=== PATIENT | male | born 1975 | race Caucasian/White ===

== ENCOUNTER 2024-03-03 06:08 | Emergency (ER) | payer OTHER, SELFPAY ==
[2024-03-03 06:11] VITALS: BP 190/104
[2024-03-03 06:20] VITALS: BMI 24.9
[2024-03-03 06:25] VITALS: BP 177/110; BP 187/110; BP 197/122; PULSE 71; PULSE 80; PULSE 83
[2024-03-03 06:43] LABS: % Basophils 0.6 % (0-2); % Eosinophils 1.7 % (0-6); % Immature Granulocytes 0.5 % (0-0.5); % Neutrophils 65.2 % (42.2-75.2); Absolute Eosinophils 0.1 10^3/uL (0-0.7); Absolute Lymphocytes 1.5 10^3/uL (1.2-3.4); Absolute Monocytes 0.6 10^3/uL (0.1-0.6); Absolute Neutrophils 4.3 10^3/uL (1.4-6.5); Hematocrit 44.9 % (39.0-52.0); Hemoglobin 14.3 g/dL (13.0-18.0); Mean Corp Hgb Conc. 31.8 g/dL (33.0-37.0); Mean Corpuscular Hgb 31.4 pg (27.0-31.0); Mean Corpuscular Volume 98.5 fL (80.0-94.0); Mean Platelet Volume 9.4 fL (7.4-10.4); Nucleated Red Blood Cells % 0 % (-); Platelet Count 221 10^3/uL (130-400); Red Blood Cell Count 4.56 10^6/uL (4.70-6.10); Red Cell Dist. Width 13.7 % (11.5-14.5); White Blood Cell Count 6.7 10^3/uL (4.8-10.8)
--- NOTE | 2024-03-03 06:45 | ED.GENMED ---
History of Present Illness
<Mikaela Robles MD, Resident - Last Filed: 03/03/24 09:41>
General
Chief Complaint: Dizziness
Source: patient
Exam Limitations: none
Time Seen by Provider: 03/03/24 06:28
History of Present Illness
History of Present Illness:
This is a 48 year old male patient with no significant PMH who presented to the ED with concerns of dizziness. 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 As he was
unable to work, he had driven home where his epsiode spontaneously resolved. He did not have another episode until last night and today morning along with clammy hands. Sharp movements of his head exacerabte dizziness while laying down provides
relief. He denies any nausea, vomiting, headaches, weakness of extremities, palpitations or vision changes. He does not take any medications on a regular basis. He is a current smoker who smokes 1 pack a day.
Past History
<Mikaela Robles MD, Resident - Last Filed: 03/03/24 09:41>
Past History
ED Past Medical History: Other (none)
ED Past Surgical History: Other (hernia surgery)
Social History
Tobacco: Smoker (smokes 1pack/day)
Alcohol: Occasional
Drug: None
Employment: Employed
Review of Systems
<Mikaela Robles MD, Resident - Last Filed: 03/03/24 09:41>
Review of Systems
Allergies reviewed?: Yes
Constitutional: Denies fever or chills
Respiratory: Denies cough
Cardiac: Denies chest pain or palpitations
ABD/GI: Denies abdominal pain
Phy Exam
<Mikaela Robles MD, Resident - Last Filed: 03/03/24 09:41>
General Physical Exam
General Presentation: well appearing and no apparent distress
Cardiovascular Exam
Cardiovascular Exam: regular rate/rhythm and no murmur
Heart Sounds: normal
Pulmonary Exam
Pulmonary Exam: lungs clear
Gastrointestinal Exam
Gastrointestinal Exam: non tender, soft and non distended
Neurological Exam
Neurological Exam: oriented x3
Musculoskeletal Exam
Musculoskeletal Exam: no edema
Skin Exam
Skin Exam: warm/dry
Course
<Mikaela Candida Robles MD, Resident - Last Filed: 03/03/24 09:41>
Orders/Labs/Results
Orders:
Orders
03/03/24 06:15
ECG [Electrocardiogram (*1)] Urgent
Reason for Study: Vertigo / Dizzy
03/03/24 06:16
EKG- Treatment ONCE
03/03/24 06:30
Orthostatic Vital Signs As Directed
Orthostatic VS Frequency: Now
03/03/24 06:32
Orthostatic VS- Treatment ONCE
03/03/24 06:36
CMP [Comprehensive Metabolic Panel] Urgent
Complete Blood Count/With Diff Urgent
03/03/24 06:44
Physical Therapy Consult [Pt Eval And Treat] Urgent
Treatment: BPPV, mallory maneuver
Activity Level: As Tolerated
Abnormal Lab Results
03/03/24
06:36
RBC 4.56 L 10^6/uL
(4.70-6.10)
MCV 98.5 H fL
(80.0-94.0)
MCH 31.4 H pg
(27.0-31.0)
MCHC 31.8 L g/dL
(33.0-37.0)
Glucose 107 H mg/dl
(70-99)
03/03/24 06:36
03/03/24 06:36
Vital Signs
Initial and Last Documented VS:
Initial Vital Signs
Temp Pulse Resp BP Pulse Ox
98.2 F 74 18 190/104 100
03/03/24 06:11 03/03/24 06:11 03/03/24 06:11 03/03/24 06:11 03/03/24 06:11
Last Documented Vital Signs
Temp Pulse Resp BP Pulse Ox
98.2 F 65 16 178/106 97
03/03/24 06:11 03/03/24 07:00 03/03/24 08:00 03/03/24 07:00 03/03/24 07:00
Reidlt;Kalyan Cordoba, - Last Filed: 03/03/24 13:09>
Orders/Labs/Results
Orders:
Orders
03/03/24 06:15
ECG [Electrocardiogram (*1)] Urgent
Reason for Study: Vertigo / Dizzy
03/03/24 06:16
EKG- Treatment ONCE
03/03/24 06:30
Orthostatic Vital Signs As Directed
Orthostatic VS Frequency: Now
03/03/24 06:32
Orthostatic VS- Treatment ONCE
03/03/24 06:36
CMP [Comprehensive Metabolic Panel] Urgent
Complete Blood Count/With Diff Urgent
03/03/24 06:44
Physical Therapy Consult [Pt Eval And Treat] Urgent
Treatment: BPPV, mallory maneuver
Activity Level: As Tolerated
Abnormal Lab Results
03/03/24
06:36
RBC 4.56 L 10^6/uL
(4.70-6.10)
MCV 98.5 H fL
(80.0-94.0)
MCH 31.4 H pg
(27.0-31.0)
MCHC 31.8 L g/dL
(33.0-37.0)
Glucose 107 H mg/dl
(70-99)
03/03/24 06:36
03/03/24 06:36
Vital Signs
Initial and Last Documented VS:
Initial Vital Signs
Temp Pulse Resp BP Pulse Ox
98.2 F 74 18 190/104 100
03/03/24 06:11 03/03/24 06:11 03/03/24 06:11 03/03/24 06:11 03/03/24 06:11
Last Documented Vital Signs
Temp Pulse Resp BP Pulse Ox
98.2 F 65 16 178/106 97
03/03/24 06:11 03/03/24 07:00 03/03/24 08:00 03/03/24 07:00 03/03/24 07:00
<Mikaela Robles MD, Resident - Last Filed: 03/03/24 09:41>
MDM/Problems Addressed
Differential Diagnosis Includes:
BPPV, hypoglycemia,
<Mikaela Robles MD, Resident - Last Filed: 03/03/24 09:41>
*Critical Care Note
Total Time (30-74mins, 75-104mins- exclusive of procedures): Not Applicable
<Mikaela Robles MD, Resident - Last Filed: 03/03/24 09:41>
Update Note
Update Note:
Patient is noted to have high BP readings, he states that he has had high readings before in doctors offices (likely undiagnosed HTN). CBC/CMP unremarkable. Orthostatic vitals done. Physical therapy consult for Mallory maneuver which yielded no
significant findings. Dizziness may likely be contributed to uncontrolled HTN. Discharged with Amlodipine and can take meclizine OTC. F/u with PCP in 1 week.
ED Attending Note
<Mikaela Robles MD, Resident - Last Filed: 03/03/24 09:41>
-
Portions of this chart may have been created with voice recognition software.� Occasional wrong word or��sound alike� substitutions may have occurred due to the inherent limitations of voice recognition software.
<Kalyan Cordoba, DO - Last Filed: 03/03/24 13:09>
ED Attending Note
Patient seen and examined by attending physician: Yes
I performed a history and physical exam of patient and discussed management with resident, I reviewed resident's note and agree with documented findings and plan of care.: Yes
ED Attending Note:
I have reviewed Dr. Robles's note.
Pt c/o dizziness....feels like room is spinning. No headache. Worse with sharp head movements. No focal weakness, numbness, tingling.
General: Awake, Alert, Oriented X3. No acute distress.
Vitals: unremarkable
Head: Atraumatic
Eyes: Pupils equal, EOMI
Throat: Airway intact, no exudates
Neck: Trachea midline
Lungs: Clear and equal b/l
Heart: Regular rate, no murmurs
Abd: Soft, Nontender, No pulsatile mass
Neuro: Cranial nerves intact, muscle strength equal bilaterally, cerebellar exam normal
Skin: Warm, dry, no rash
Extremities: pulses equal b/l, no edema
Patient evaluated by physical therapy. No significant abnormalities on their exam. Patient has blood pressure which appears not to be treated. Will prescribe amlodipine. Follow-up as an outpatient.
Discharge Plan
Departure
Patient Disposition: Home (Routine Discharge)
Date of Disposition: 03/03/24
Time of Disposition: 08:30
Patient with high blood pressure during this ER visit?: Yes
Discharge Problem:
Elevated blood pressure reading with diagnosis of hypertension, Dizziness
Prescriptions:
New
amlodipine 5 mg tablet
5 mg PO DAILY Qty: 30 0RF
Activity Restrictions/Additional Instructions:
Amlodipine started for HTN. Take it each day around the same time of day. If worsening symptoms, please return to ER.
Otherwise follow up with your family doctor in week.
Interventions
Interventions:
*Risk Screen - Suicide Last Done: 03/03/24 06:11
*General Assessment Last Done: 03/03/24 06:20
*Neglect/Abuse Screening Last Done: 03/03/24 06:11
ED- Fall Risk Assessment Last Done: 03/03/24 06:20
*ED COVID-19 Vaccine History Last Done: 03/03/24 06:20
*Nursing Disposition Last Done: 03/03/24 08:53
ED- Neurological Assessment Last Done: 03/03/24 06:20
ED- Cardiac Assessment Last Done: 03/03/24 06:20
ED Swallowing Screen Last Done: 03/03/24 07:02
Discharge Date and Time
Discharge Date/Time: 03/03/24 08:59
Print Language: MACANESE
[2024-03-03 06:56] LABS: ALT (SGPT) 16 U/L (0-50); AST (SGOT) 20 U/L (17-59); Albumin 4.6 g/dl (3.5-5.0); Alkaline Phosphatase 44 U/L (38-126); Blood Urea Nitrogen 11 mg/dl (9-20); Calcium 9.4 mg/dl (8.4-10.2); Carbon Dioxide 26 mmol/L (22-30); Chloride 104 mmol/L (98-107); Estimated Creatinine Clearance 101 ml/min; Glucose 107 mg/dl (70-99); Potassium 4.3 mmol/L (3.5-5.1); Sodium 141 mmol/L (135-145); Total Bilirubin 0.4 mg/dl (0.2-1.3); Total Protein 7.3 g/dl (6.3-8.2); eGFR > 60.00
[2024-03-03 07:00] VITALS: BP 178/106
[2024-03-03 08:04] VITALS: BP 178/106; BP 181/109
[2024-03-03 17:07] LABS: HDL Cholesterol 44 mg/dl; LDL Cholesterol, Calculated 187 mg/dl; Total Cholesterol 258 mg/dl (50-199); Triglyceride 138 mg/dl (10-149); Very Low Density Lipoprotein 27 mg/dl (0-30)
== END 2024-03-03 08:59 | disposition home or self-care (01) ==
LOC: EMR 06:08
PROVIDERS: Surgery; EMERGENCY PHYSICIAN Emergency Medicine; FAMILY PHYSICIAN Family Medicine
DX: I10 Essential (primary) hypertension (principal); R42 Dizziness and giddiness; F17.210 Nicotine dependence, cigarettes, uncomplicated
CPT/HCPCS: 99284; 80053; 80061; 85025; 93005

== ENCOUNTER → 2024-03-03 12:59 | Outpatient (REF) | payer OTHER, SELFPAY | LOC: RAD 12:59 | PROVIDERS: ATTENDING PHYSICIAN Internal Medicine Cardiovascular Disease; FAMILY PHYSICIAN Family Medicine | DX: R42 Dizziness and giddiness (principal); R03.0 Elevated blood-pressure reading, without diagnosis of hypertension; I99.8 Other disorder of circulatory system; R09.89 Other specified symptoms and signs involving the circulatory and respiratory systems; F17.200 Nicotine dependence, unspecified, uncomplicated | CPT/HCPCS: 93880 ==

== ENCOUNTER → 2024-03-11 15:57 | Outpatient (REF) | payer OTHER, SELFPAY | LOC: HWRCS 15:57 | PROVIDERS: ATTENDING PHYSICIAN Internal Medicine Cardiovascular Disease; FAMILY PHYSICIAN Family Medicine | DX: R42 Dizziness and giddiness (principal); I77.9 Disorder of arteries and arterioles, unspecified; I77.1 Stricture of artery | CPT/HCPCS: 93306 ==

== ENCOUNTER → 2024-03-13 10:56 | Outpatient (REF) | payer OTHER, SELFPAY | LOC: RCS 10:56 | PROVIDERS: ATTENDING PHYSICIAN Internal Medicine Cardiovascular Disease; FAMILY PHYSICIAN Family Medicine | DX: R42 Dizziness and giddiness (principal) | CPT/HCPCS: 93225; 93226 ==

== ENCOUNTER → 2025-02-26 11:43 | Outpatient (REF) | payer OTHER, SELFPAY | LOC: HWRCS 11:43 | PROVIDERS: ATTENDING PHYSICIAN Internal Medicine Cardiovascular Disease; FAMILY PHYSICIAN Family Medicine | DX: R42 Dizziness and giddiness (principal); I77.1 Stricture of artery; R03.0 Elevated blood-pressure reading, without diagnosis of hypertension; I99.8 Other disorder of circulatory system; R09.89 Other specified symptoms and signs involving the circulatory and respiratory systems; F17.200 Nicotine dependence, unspecified, uncomplicated; R93.1 Abnormal findings on diagnostic imaging of heart and coronary circulation; I73.9 Peripheral vascular disease, unspecified | CPT/HCPCS: 78452; 93017; A9500 ==

== ENCOUNTER → 2025-03-05 10:16 | Outpatient (REF) | payer OTHER, SELFPAY | LOC: HWRCS 10:16 | PROVIDERS: ATTENDING PHYSICIAN Internal Medicine Cardiovascular Disease; FAMILY PHYSICIAN Family Medicine | DX: R42 Dizziness and giddiness (principal); I77.1 Stricture of artery; R03.0 Elevated blood-pressure reading, without diagnosis of hypertension; I99.8 Other disorder of circulatory system; R09.89 Other specified symptoms and signs involving the circulatory and respiratory systems; F17.200 Nicotine dependence, unspecified, uncomplicated; R93.1 Abnormal findings on diagnostic imaging of heart and coronary circulation; I73.9 Peripheral vascular disease, unspecified | CPT/HCPCS: 93306 ==